=== PATIENT | female | born 1980 | race Caucasian/White ===

== ENCOUNTER 2016-09-20 14:14 | Emergency (ER) | payer OTHER ==
[~2016-09-20] VITALS: Wt 68.0 kg
--- NOTE | ~2016-09-20 | EKG ---
[place], [place] ELECTROCARDIOGRAM REPORT NAME: LOVE CASTILLO UNIT #: [id number] ROOM: DOCTOR: TRUMAN DAMON MD BIRTHDATE: [birth year] DOS: 09/20/2016 TIME: 14:46 p.m. FINDINGS: 1. Sinus tachycardia with rate of 142. 2. Nonspecific ST and T wave changes especially in the inferior leads. 3. Abnormal electrocardiogram. TRUMAN DAMON MD CM:EKGRPT:ELECTROCARDIOGRAM REPORT [id number] TRUMAN DAMON MD
[~2016-09-20 14:14] MED LIST: ACETAMINOPHEN-H1 TA2 PO; ALPRAZOLAM0.5 M3 PO; BUPROPION HCL200 MG PO; CIPRO250 MG PO; DIPHENHYDRAMINE25 M1 PO; FLOMAX0.4 MG PO; HYDROCODONE BIT1 T11 PO; INDERAL20 MG PO; MEDROL DOSEPAK4 MG PO; METHIMAZOLE10 MG PO; METHIMAZOLE5 MG PO; MOTRIN800 MG PO; PROPRANOLOL HCL20 M1 PO; TAPAZOLE10 MG PO; XANAX XR2 MG PO; XANAX0.5 MG PO
[2016-09-20 15:03] LABS: HEMATOCRIT 40.2 % (37.0-47.0); HEMOGLOBIN 13.8 g/dl (12.0-16.0); MEAN CELL VOLUME 84.8 fl (81.0-99.0); MEAN CORPUSCULAR HGB 29.1 pg (27.0-31.0); MEAN CORPUSCULAR HGB CONC 34.3 g/dl (33.0-37.0); MEAN PLATELET VOLUME 9.4 fl (9.6-12.3); PLATELET COUNT AUTOMATED 286 10*3/uL (130-400); RED BLOOD COUNT 4.74 10*6/uL (4.10-5.10); WHITE BLOOD COUNT 17.6 10*3/uL (4.8-10.8)
[2016-09-20 15:21] LABS: BASOPHIL # 0.2 10*3/uL (0-0.1); BASOPHILS 1 % (0-1); LYMPHOCYTE # 0.7 10*3/uL (1.3-4.4); MONOCYTE # 1.2 10*3/uL (0.1-1.0); NEUTROPHIL # 15.5 10*3/uL (2.3-7.9); NEUTROPHILS 88 % (47-73); PLATELET SUFFICIENCY NORMAL (NORMAL); TOTAL CELLS COUNTED 100 #CELLS
[2016-09-20 15:25] LABS: ALBUMIN 3.8 gm/dl (3.1-4.5); ALKALINE PHOSPHATASE 99 U/L (45-117); BILIRUBIN, TOTAL 0.8 mg/dl (0.2-1.0); BUN 7 mg/dl (7-24); CARBON DIOXIDE 24 mmol/L (21-32); CHLORIDE 104 mmol/L (98-107); EST GLOM FILT AFRICAN AMERICAN > 60 ml/min; FREE T4 1.09 ng/dl (0.76-1.46); GLUCOSE 98 mg/dL (65-99); POTASSIUM 3.8 mmol/L (3.5-5.1); SGOT/AST 21 IU/L (3-35); SGPT/ALT 23 U/L (12-78); SODIUM 139 mmol/L (136-145); TOTAL PROTEIN 8.3 gm/dL (6.4-8.2)
[2016-09-20 15:31] LABS: THYROID STIM HORMONE (HS) 0.688 uIU/ml (0.358-4.75)
[2016-09-20 15:43] LABS: BILIRUBIN NEGATIVE (NEGATIVE); BLOOD NEGATIVE (NEGATIVE); CLARITY SL CLOUDY (CLEAR); COLOR YELLOW (YELLOW); GLUCOSE NEGATIVE (NEGATIVE); KETONE 1+ (NEGATIVE); LEUKO ESTERASE NEGATIVE (NEGATIVE); NITRITE NEGATIVE (NEGATIVE); PH 6.5 (5.0-9.0); PROTEIN NEGATIVE (NEGATIVE); SPECIFIC GRAVITY <= 1.005 (1.005-1.030); UROBILINOGEN 0.2 E.U./dl (0.2-1.0)
[2016-09-20 15:53] LABS: BACTERIA 1+; EPITHELIAL CELLS TNTC; RBC 0-2 rbc/hpf (0-2); URINE REFLEX COMMENT NO (NO); WBC 0-2 wbc/hpf (0-5)
[2016-09-20 15:55] LABS: TROPONIN I < 0.015 ng/ml (<0.045)
== END 2016-09-20 17:40 | disposition home or self-care (01) ==
LOC: ED 14:14
PROVIDERS: Physician Assistant
DX: B34.9 Viral infection, unspecified (principal); Z90.49 Acquired absence of other specified parts of digestive tract

== ENCOUNTER 2018-02-17 19:03 | Emergency (ER) | payer OTHER ==
[~2018-02-17] VITALS: Ht 175.2 cm; Wt 68.0 kg
--- NOTE | ~2018-02-17 | EKG ---
[place], [place] ELECTROCARDIOGRAM REPORT NAME: LOVE CASTILLO UNIT #: [id number] ROOM: DOCTOR: EPIPHANY DRAFT REPORT BIRTHDATE: [birth year] [facility] Test Date: 2018-02-17 Test Time: 20:59:53 Pat Name: LOVE CASTILLO Department: Room: Gender: F [employer] Professional: Mayra Pack : 1980 Requested By: LEBRON TRAN DNP Order Number: [id number] Reading MD: Ronal Randolph MD Measurements Intervals [place] Rate: 104 P: 70 ND: 150 QRS: 60 QRSD: 64 T: 33 QT: 338 QTc: 445 Interpretive Statements Sinus tachycardia Probable left atrial enlargement Electronically Signed On 02-20-2018 13:27:42 PDT by Ronal Randolph MD CM:EKGRPT:ELECTROCARDIOGRAM REPORT [id number] LEBRON TRAN DNP EPIPHANY DRAFT REPORT LEBRON TRAN DNP
== END 2018-02-17 21:03 | disposition home or self-care (01) ==
LOC: ED 19:03
DX: S93.401A Sprain of unspecified ligament of right ankle, initial encounter (principal); S90.31XA Contusion of right foot, initial encounter; X50.1XXA Overexertion from prolonged static or awkward postures, initial encounter; Y93.01 Activity, walking, marching and hiking; Y92.098 Other place in other non-institutional residence as the place of occurrence of the external cause; Y99.8 Other external cause status

== ENCOUNTER → 2020-08-25 | Outpatient (CLI) | payer OTHER ==
[~2020-08-25] MED LIST changes: +CLINDAMYCIN HC300 MG PO; +NAPROSYN500 MG PO
== END | disposition home or self-care (01) ==
LOC: RAD 17:44
PROVIDERS: ATTEND Preventive Medicine Occupational Medicine
DX: M54.2 Cervicalgia (principal)

== ENCOUNTER 2021-08-19 15:16 | Emergency (ER) | payer OTHER ==
[~2021-08-19] VITALS: Ht 175.2 cm; Wt 72.6 kg
[2021-08-19 16:27] LABS: BASO # 0.1 10*3/uL (0.0-0.1); BASO % 0.9 % (0.0-1.0); EOS # 0.1 10*3/uL (0.0-0.4); HEMATOCRIT 41.6 % (37.0-47.0); LYMPH # 0.8 10*3/uL (1.3-4.4); LYMPH % 9.6 % (27.0-41.0); MEAN CELL VOLUME 86.5 fl (81.0-99.0); MEAN CORPUSCULAR HGB 28.5 pg (27.0-31.0); MEAN CORPUSCULAR HGB CONC 32.9 g/dl (33.0-37.0); MONO # 0.8 10*3/uL (0.1-1.0); NEUT # 6.1 10*3/uL (2.3-7.9); NEUT % 78.1 % (47.0-73.0); PLATELET COUNT AUTOMATED 310 10*3/uL (130-400); RED BLOOD COUNT 4.81 10*6/uL (4.10-5.10); RED CELL DISTRI WIDTH 12.6 % (0-14.5); WHITE BLOOD COUNT 7.8 10*3/uL (4.8-10.8)
[2021-08-19 16:38] LABS: BILIRUBIN Negative (Negative); BLOOD 3+ (Negative); CLARITY Turbid (Clear); COLOR Dark Yellow (Yellow); GLUCOSE Negative (Negative); KETONE Trace (Negative); LEUKO ESTERASE Negative (Negative); NITRITE Negative (Negative); SPECIFIC GRAVITY 1.025 (1.001-1.030)
[2021-08-19 16:46] LABS: ALKALINE PHOSPHATASE 99 U/L (45-117); BUN 12 mg/dl (7-24); CHLORIDE 105 mmol/L (98-107); CREATININE 0.89 mg/dL (0.55-1.02); POTASSIUM 3.8 mmol/L (3.5-5.1); SGOT/AST 20 IU/L (3-35); SGPT/ALT 36 U/L (12-78); SODIUM 138 mmol/L (136-145); TOTAL PROTEIN 8.5 gm/dL (6.4-8.2)
[2021-08-19 19:18] LABS: BACTERIA 1+
== END 2021-08-19 17:26 | disposition home or self-care (01) ==
LOC: ED 15:16
PROVIDERS: Emergency Medicine; Hospitalist
DX: R10.2 Pelvic and perineal pain (principal); Z98.51 Tubal ligation status; Z98.890 Other specified postprocedural states; Z90.49 Acquired absence of other specified parts of digestive tract

== ENCOUNTER → 2024-09-19 | Outpatient (CLI) | payer OTHER ==
[2024-09-19 14:55] LABS: HEMATOCRIT 42.5 % (37.0-47.0); MEAN CELL VOLUME 86.4 fl (81.0-99.0); MEAN CORPUSCULAR HGB 28.9 pg (27.0-31.0); MEAN CORPUSCULAR HGB CONC 33.4 g/dl (33.0-37.0); MEAN PLATELET VOLUME 9.9 fl (9.6-12.3); RED BLOOD COUNT 4.92 10*6/uL (4.10-5.10); RED CELL DISTRI WIDTH 12.4 % (0-14.5); WHITE BLOOD COUNT 12.3 10*3/uL (4.8-10.8)
[2024-09-19 15:24] LABS: ALKALINE PHOSPHATASE 73 U/L (46-116); BUN 15 mg/dl (9-23); CHLORIDE 105 mmol/L (98-107); CHOLESTEROL 211 mg/dL (<200); LDL CHOLESTEROL 144 mg/dL (9-159); POTASSIUM 3.6 mmol/L (3.4-5.1); SGPT/ALT 9 U/L (5-49); TOTAL PROTEIN 8.4 gm/dL (6.0-8.0); TRIGLYCERIDES 69 mg/dl (<150)
[2024-09-22 20:07] LABS: TESTOS, FREE 0.6 pg/mL (0.0-4.2)
[2024-09-22 21:06] LABS: THYROTROPIN RECEPTOR AB 2.04 IU/L (0.00-1.75)
== END | disposition home or self-care (01) ==
LOC: LAB 14:06
PROVIDERS: ATTEND Family Medicine
DX: E55.9 Vitamin D deficiency, unspecified (principal); E78.00 Pure hypercholesterolemia, unspecified; R53.83 Other fatigue; E74.00 Glycogen storage disease, unspecified; F41.1 Generalized anxiety disorder; N95.1 Menopausal and female climacteric states; N95.9 Unspecified menopausal and perimenopausal disorder; E05.00 Thyrotoxicosis with diffuse goiter without thyrotoxic crisis or storm

== ENCOUNTER 2024-11-06 12:06 | Emergency (ER) | payer OTHER ==
[~2024-11-06] VITALS: Ht 175.2 cm; Wt 59.9 kg
[2024-11-06] MEDS ORDERED: Ondansetron Hydrochloride 4 MG/2 ML VIAL IV ONE (12:25)
[2024-11-06] MEDS ORDERED: SODIUM CHLORIDE 0.9% 1,000 ML IV ONE (12:25)
[2024-11-06] MEDS ORDERED: diazePAM 5 MG TAB PO ONE (12:25)
[2024-11-06 12:48] LABS: BASO # 0.1 10*3/uL (0.0-0.1); BASO % 0.8 % (0.0-1.0); EOS # 0.1 10*3/uL (0.0-0.4); EOS % 0.7 % (1.0-4.0); HEMATOCRIT 42.1 % (37.0-47.0); MEAN CELL VOLUME 84.7 fl (81.0-99.0); MEAN CORPUSCULAR HGB 29.6 pg (27.0-31.0); MEAN CORPUSCULAR HGB CONC 34.9 g/dl (33.0-37.0); MEAN PLATELET VOLUME 9.8 fl (9.6-12.3); MONO # 0.8 10*3/uL (0.1-1.0); MONO % 9.6 % (3.0-9.0); NEUT # 5.7 10*3/uL (2.3-7.9); NEUT % 66.4 % (47.0-73.0); PLATELET COUNT AUTOMATED 289 10*3/uL (130-400); RED BLOOD COUNT 4.97 10*6/uL (4.10-5.10); RED CELL DISTRI WIDTH 12.3 % (0-14.5); WHITE BLOOD COUNT 8.6 10*3/uL (4.8-10.8)
[2024-11-06 13:08] LABS: BUN 19 mg/dl (9-23); CHLORIDE 103 mmol/L (98-107); POTASSIUM 3.3 mmol/L (3.4-5.1)
[2024-11-06] MEDS ORDERED: POTASSIUM CHLORIDE 20 MEQ TAB PO ONE (13:30)
[2024-11-06] MEDS ORDERED: ANTIVERT25 M2 PO (13:37)
== END 2024-11-06 13:50 | disposition home or self-care (01) ==
LOC: ED 12:06
PROVIDERS: Emergency Medicine
DX: R42 Dizziness and giddiness (principal); R11.2 Nausea with vomiting, unspecified; F32.A Depression, unspecified; F41.9 Anxiety disorder, unspecified; Z79.899 Other long term (current) drug therapy; Z90.49 Acquired absence of other specified parts of digestive tract; Z98.51 Tubal ligation status; Z98.890 Other specified postprocedural states